=== PATIENT | female | born 1965 | race Two or more races ===

== ENCOUNTER 2021-07-14 11:48 | Inpatient (IN) | payer OTHER ==
[~2021-07-14] VITALS: Ht 160 cm; Wt 28.6 kg
[2021-07-14] MEDS ORDERED: cefTRIAXone SOD 1,000 MG VL ONE (11:58)
[2021-07-14] MEDS ORDERED: LIDOCAINE 2% (LOCAL ANESTH.) PF 5ml SDV ONE (11:58)
[2021-07-14] MEDS ORDERED: DexAMETHasone SOD PHOS 4 MG/1ML SDV INJ IM ONE (12:00)
[2021-07-14] MEDS ORDERED: cefTRIAXone W LIDOCAINE 1 GM IM IM ONE (12:15)
[2021-07-14 12:26] LABS: Basophils # (auto) 0 10 ^3/uL (0-0.2); Basophils % (auto) 0.1 % (0.0-2.0); Eosinophils # (auto) 0 10 ^3/uL (0-0.8); Hematocrit 37.6 % (36.0-46.0); Lymphocytes % (auto) 7.9 % (10.0-50.0); Mean Corpuscular Hemoglobin 30.8 pg (28.0-32.0); Mean Corpuscular Hgb Conc. 34.6 g/dL (32.0-36.0); Mean Corpuscular Volume 88.9 fL (80.0-100.0); Monocytes # (auto) 0.5 10 ^3/uL (0-1.3); Monocytes % (auto) 4.2 % (0.0-12.0); Neutrophils # (auto) 11.2 10 ^3/uL (1.6-8.6); Neutrophils % (auto) 87.8 % (37.0-80.0); Red Blood Cells 4.23 10^6/uL (4.0-5.20); Red Cell Distribution Width 12.8 % (11.8-14.3); White Blood Cell 12.8 10^3/uL (4.4-10.8)
[2021-07-14 12:36] LABS: Albumin 3.1 g/dL (3.4-5.0); Anion Gap 10 (5-15); Blood Urea Nitrogen 14 mg/dL (7-18); Calcium 8.8 mg/dL (8.5-10.1); Carbon Dioxide 20 mmol/L (21-32); Chloride 104 mmol/L (98-107); Glucose 115 mg/dL (74-106); Magnesium 2.2 mg/dL (1.6-2.6); Sodium 134 mmol/L (136-145)
[2021-07-14 12:46] LABS: Alanine Aminotransferase 49 U/L (13-56); Alkaline Phosphatase 110 U/L (45-117); Aspartate Aminotransferase 43 U/L (15-37); BUN/Creatinine Ratio 16.9; Bilirubin, Total 0.3 mg/dL (0.2-1.0); CRP High Sensitivity 2.94 mg/dL (< 0.3); GFR African American 91 mL/min; GFR Non-African American 75 mL/min
[2021-07-14] MEDS ORDERED: AZITHROMYCIN 500MG/ 250ML 250 ML IV ONE (15:45)
[2021-07-14] MEDS ORDERED: ACETAMINOPHEN 500 MG TAB PO PRN (17:15)
[2021-07-14] MEDS ORDERED: DOCUSATE CALCIUM 240 MG CAP PO PRN (17:15)
[2021-07-14] MEDS ORDERED: NITROGLYCERIN 0.4 MG SL TAB SL PRN (17:15)
[2021-07-14] MEDS ORDERED: MORPHINE SULFATE INJECTION 2 MG/ML SYRG IV PRN ×2 (17:15)
[2021-07-14] MEDS: BUDESONIDE (INHALATION) 180 MCG IH IN SCH (22:00)
[2021-07-14] MEDS: ENOXAPARIN SOD 40 MG/0.4 ML SYRINGE SC SCH (23:10)
[2021-07-15 03:47] VITALS: BP 111/46
[2021-07-15 04:48] LABS: Basophils # (auto) 0 10 ^3/uL (0-0.2); Basophils % (auto) 0.2 % (0.0-2.0); Eosinophils # (auto) 0 10 ^3/uL (0-0.8); Hematocrit 34.8 % (36.0-46.0); Hemoglobin 12.1 g/dL (12.2-16.2); Lymphocytes # (auto) 1.3 10 ^3/uL (0.4-5.4); Lymphocytes % (auto) 15.7 % (10.0-50.0); Mean Corpuscular Hemoglobin 31.1 pg (28.0-32.0); Mean Corpuscular Hgb Conc. 34.9 g/dL (32.0-36.0); Mean Corpuscular Volume 89.2 fL (80.0-100.0); Monocytes # (auto) 0.7 10 ^3/uL (0-1.3); Neutrophils # (auto) 6.2 10 ^3/uL (1.6-8.6); Neutrophils % (auto) 75.1 % (37.0-80.0); Red Cell Distribution Width 12.9 % (11.8-14.3); White Blood Cell 8.3 10^3/uL (4.4-10.8)
[2021-07-15 05:16] LABS: Albumin 2.6 g/dL (3.4-5.0); Calcium 8.1 mg/dL (8.5-10.1); Potassium 4.2 mmol/L (3.5-5.1)
[2021-07-15 05:18] LABS: BUN/Creatinine Ratio 25.4
[2021-07-15 05:21] LABS: Bilirubin, Total 0.2 mg/dL (0.2-1.0)
[2021-07-15] MEDS: BUDESONIDE (INHALATION) 180 MCG IH IN SCH ×2 (07:10→22:00)
[2021-07-15] MEDS: ALBUTEROL SULF HFA 90MCG INH 200DOSE IN PRN (07:10)
[2021-07-15 08:09] LABS: Urine Bacteria NONE SEEN /hpf (None Seen); Urine Blood Negative /uL (Negative); Urine Specific Gravity 1.023 (1.001-1.035); Urine WBC 2 /hpf (0 - 5)
[2021-07-15 09:00] VITALS: BP 129/75
[2021-07-15 09:05] VITALS: BP 129/75
[2021-07-15] MEDS: ASCORBIC ACID 1,000 MG TAB PO SCH (09:46)
[2021-07-15] MEDS: ZINC SULFATE 220mg CAP or TAB PO SCH (09:46)
[2021-07-15] MEDS: CHOLECALCIFEROL (VITD3) 2,000 UNIT CAP/TAB PO SCH (09:46)
[2021-07-15] MEDS: cefTRIAXone 1GM/50ML D5W 50 ML IV SCH (09:46)
[2021-07-15] MEDS: PANTOPRAZOLE 40 MG TAB PO SCH (09:46)
[2021-07-15] MEDS ORDERED: REMDESIVIR PER PHARMACY 0 ML IV SCH (10:15)
[2021-07-15] MEDS ORDERED: guaiFENesin-CODEINE Liq 5 ML UD GT PRN (10:30)
[2021-07-15] MEDS: AZITHROMYCIN 500MG/ 250ML 250 ML IV SCH (10:44)
[2021-07-15] MEDS: ENOXAPARIN SOD 40 MG/0.4 ML SYRINGE SC SCH ×2 (11:28→21:25)
[2021-07-15] MEDS: ONDANSETRON HCL 4 MG/2 ML VIAL IV PRN (12:34)
[2021-07-15 13:00] VITALS: BP 125/75
[2021-07-15] MEDS ORDERED: REMDESIVIR 200 MG in NS 210ml LOADING DOSE ADULT IV ONE (13:00)
[2021-07-15 17:00] VITALS: BP 110/65
[2021-07-15 22:00] VITALS: BP 110/60
[2021-07-16] MEDS: ALBUTEROL SULF HFA 90MCG INH 200DOSE IN PRN ×3 (01:09→19:50)
[2021-07-16 05:00] VITALS: BP 95/63
[2021-07-16] MEDS: BUDESONIDE (INHALATION) 180 MCG IH IN SCH ×2 (07:20→19:50)
[2021-07-16 07:40] LABS: Calcium 8.2 mg/dL (8.5-10.1); Potassium 4.3 mmol/L (3.5-5.1)
[2021-07-16 07:44] LABS: BUN/Creatinine Ratio 31.3
[2021-07-16 09:00] VITALS: BP 82/56
[2021-07-16] MEDS: CHOLECALCIFEROL (VITD3) 2,000 UNIT CAP/TAB PO SCH (10:12)
[2021-07-16] MEDS: PANTOPRAZOLE 40 MG TAB PO SCH (10:12)
[2021-07-16] MEDS: cefTRIAXone 1GM/50ML D5W 50 ML IV SCH (10:12)
[2021-07-16] MEDS: ASCORBIC ACID 1,000 MG TAB PO SCH (10:12)
[2021-07-16] MEDS: ZINC SULFATE 220mg CAP or TAB PO SCH (10:12)
[2021-07-16] MEDS: ENOXAPARIN SOD 40 MG/0.4 ML SYRINGE SC SCH ×2 (10:13→22:06)
[2021-07-16] MEDS: ONDANSETRON HCL 4 MG/2 ML VIAL IV PRN (11:19)
[2021-07-16] MEDS: AZITHROMYCIN 500MG/ 250ML 250 ML IV SCH (11:19)
[2021-07-16 11:26] LABS: Hematocrit 38.1 % (36.0-46.0); Mean Corpuscular Hemoglobin 30.8 pg (28.0-32.0); Mean Corpuscular Hgb Conc. 34.2 g/dL (32.0-36.0); Red Blood Cells 4.23 10^6/uL (4.0-5.20); Red Cell Distribution Width 13.1 % (11.8-14.3); White Blood Cell 11.4 10^3/uL (4.4-10.8)
[2021-07-16 11:28] LABS: Basophils % (manual) 0 (0.0-2.0); Blast Cells 0; Eosinophils % (manual) 0 (0-7); Metamyelocytes % 0; Myelocytes % 0; Promyelocytes % 0; Reactive Lymphocytes 0
[2021-07-16 12:16] LABS: Band Neutrophils % (manual) 1; Lymphocytes % (manual) 18 (10.0-50.0); Monocytes % (manual) 7 (0-12)
[2021-07-16 13:00] VITALS: BP 99/76
[2021-07-16] MEDS: REMDESIVIR 100mg 100 MG in SODIUM CHL 0.9% 230 ML IV SCH (15:08)
[2021-07-16 17:00] VITALS: BP 92/61
[2021-07-16 22:00] VITALS: BP 99/65
[2021-07-17 05:12] VITALS: BP 98/55
[2021-07-17] MEDS: ALBUTEROL SULF HFA 90MCG INH 200DOSE IN PRN ×2 (07:01→22:01)
[2021-07-17] MEDS: BUDESONIDE (INHALATION) 180 MCG IH IN SCH ×2 (07:01→22:00)
[2021-07-17 07:30] LABS: Basophils # (auto) 0 10 ^3/uL (0-0.2); Basophils % (auto) 0.2 % (0.0-2.0); Eosinophils # (auto) 0.1 10 ^3/uL (0-0.8); Eosinophils % (auto) 0.9 % (0.0-7.0); Hematocrit 36.5 % (36.0-46.0); Hemoglobin 12.5 g/dL (12.2-16.2); Lymphocytes # (auto) 1.5 10 ^3/uL (0.4-5.4); Lymphocytes % (auto) 19.8 % (10.0-50.0); Mean Corpuscular Hgb Conc. 34.3 g/dL (32.0-36.0); Mean Corpuscular Volume 90.4 fL (80.0-100.0); Monocytes # (auto) 0.8 10 ^3/uL (0-1.3); Monocytes % (auto) 9.9 % (0.0-12.0); Neutrophils # (auto) 5.3 10 ^3/uL (1.6-8.6); Neutrophils % (auto) 69.2 % (37.0-80.0); Nucleated Red Blood Cells % 0.1 %; Red Blood Cells 4.04 10^6/uL (4.0-5.20); Red Cell Distribution Width 13.2 % (11.8-14.3); White Blood Cell 7.7 10^3/uL (4.4-10.8)
[2021-07-17 07:34] LABS: Calcium 8.3 mg/dL (8.5-10.1); Potassium 4.3 mmol/L (3.5-5.1)
[2021-07-17 07:37] LABS: BUN/Creatinine Ratio 26.3
[2021-07-17] MEDS: ASCORBIC ACID 1,000 MG TAB PO SCH (08:41)
[2021-07-17] MEDS: ZINC SULFATE 220mg CAP or TAB PO SCH (08:41)
[2021-07-17] MEDS: CHOLECALCIFEROL (VITD3) 2,000 UNIT CAP/TAB PO SCH (08:41)
[2021-07-17] MEDS: PANTOPRAZOLE 40 MG TAB PO SCH (08:41)
[2021-07-17] MEDS: ENOXAPARIN SOD 40 MG/0.4 ML SYRINGE SC SCH ×2 (08:41→21:29)
[2021-07-17] MEDS: cefTRIAXone 1GM/50ML D5W 50 ML IV SCH (08:41)
[2021-07-17 09:00] VITALS: BP 103/67
[2021-07-17] MEDS: AZITHROMYCIN 500MG/ 250ML 250 ML IV SCH (10:00)
[2021-07-17 13:00] VITALS: BP 112/73
[2021-07-17] MEDS: REMDESIVIR 100mg 100 MG in SODIUM CHL 0.9% 230 ML IV SCH (15:26)
[2021-07-17 17:00] VITALS: BP 107/72
[2021-07-17 22:00] VITALS: BP 113/73
[2021-07-18 01:22] VITALS: BP 113/73
[2021-07-18 05:26] VITALS: BP 108/50
[2021-07-18 06:07] LABS: Hematocrit 35.7 % (36.0-46.0); Hemoglobin 12.3 g/dL (12.2-16.2); Mean Corpuscular Hemoglobin 31.1 pg (28.0-32.0); Mean Corpuscular Hgb Conc. 34.3 g/dL (32.0-36.0); Mean Corpuscular Volume 90.5 fL (80.0-100.0); Red Blood Cells 3.95 10^6/uL (4.0-5.20); Red Cell Distribution Width 12.9 % (11.8-14.3); White Blood Cell 7.8 10^3/uL (4.4-10.8)
[2021-07-18 06:31] LABS: Band Neutrophils % (manual) 0; Basophils % (manual) 0 (0.0-2.0); Blast Cells 0; Metamyelocytes % 0; Myelocytes % 0; Promyelocytes % 0; Reactive Lymphocytes 0
[2021-07-18 06:40] LABS: Calcium 8.4 mg/dL (8.5-10.1); Potassium 4.6 mmol/L (3.5-5.1)
[2021-07-18 06:42] LABS: BUN/Creatinine Ratio 20.7
[2021-07-18 08:24] LABS: Eosinophils % (manual) 4 (0-7); Lymphocytes % (manual) 21 (10.0-50.0); Monocytes % (manual) 6 (0-12)
[2021-07-18 09:00] VITALS: BP 94/52
[2021-07-18] MEDS: ZINC SULFATE 220mg CAP or TAB PO SCH (09:21)
[2021-07-18] MEDS: ASCORBIC ACID 1,000 MG TAB PO SCH (09:21)
[2021-07-18] MEDS: PANTOPRAZOLE 40 MG TAB PO SCH (09:21)
[2021-07-18] MEDS: cefTRIAXone 1GM/50ML D5W 50 ML IV SCH (09:21)
[2021-07-18] MEDS: CHOLECALCIFEROL (VITD3) 2,000 UNIT CAP/TAB PO SCH (09:21)
[2021-07-18] MEDS: BUDESONIDE (INHALATION) 180 MCG IH IN SCH ×2 (09:27→19:59)
[2021-07-18] MEDS: ALBUTEROL SULF HFA 90MCG INH 200DOSE IN PRN ×2 (09:27→19:58)
[2021-07-18] MEDS: ONDANSETRON HCL 4 MG/2 ML VIAL IV PRN (09:39)
[2021-07-18] MEDS: ENOXAPARIN SOD 40 MG/0.4 ML SYRINGE SC SCH ×2 (09:39→21:12)
[2021-07-18] MEDS: AZITHROMYCIN 500MG/ 250ML 250 ML IV SCH (11:03)
[2021-07-18 13:00] VITALS: BP 106/62
[2021-07-18] MEDS: REMDESIVIR 100mg 100 MG in SODIUM CHL 0.9% 230 ML IV SCH (15:03)
[2021-07-18 17:00] VITALS: BP 108/55
[2021-07-18 22:00] VITALS: BP 112/66
[2021-07-19 05:00] VITALS: BP 102/47
[2021-07-19 06:26] LABS: Hematocrit 34.9 % (36.0-46.0); Hemoglobin 12.2 g/dL (12.2-16.2); Mean Corpuscular Hemoglobin 31.1 pg (28.0-32.0); Mean Corpuscular Hgb Conc. 34.8 g/dL (32.0-36.0); Mean Corpuscular Volume 89.3 fL (80.0-100.0); Red Blood Cells 3.91 10^6/uL (4.0-5.20); White Blood Cell 6.3 10^3/uL (4.4-10.8)
[2021-07-19 06:32] LABS: Band Neutrophils % (manual) 0; Basophils % (manual) 0 (0.0-2.0); Blast Cells 0; Reactive Lymphocytes 0
[2021-07-19 06:39] LABS: Potassium 4.4 mmol/L (3.5-5.1)
[2021-07-19 06:56] LABS: BUN/Creatinine Ratio 21.7; Calcium 8.5 mg/dL (8.5-10.1)
[2021-07-19] MEDS: BUDESONIDE (INHALATION) 180 MCG IH IN SCH (08:22)
[2021-07-19] MEDS: ALBUTEROL SULF HFA 90MCG INH 200DOSE IN PRN (08:22)
[2021-07-19 08:39] LABS: Eosinophils % (manual) 7 (0-7); Lymphocytes % (manual) 25 (10.0-50.0); Metamyelocytes % 3; Monocytes % (manual) 15 (0-12); Myelocytes % 1; Promyelocytes % 1
[2021-07-19] MEDS: ZINC SULFATE 220mg CAP or TAB PO SCH (08:46)
[2021-07-19] MEDS: PANTOPRAZOLE 40 MG TAB PO SCH (08:46)
[2021-07-19] MEDS: ASCORBIC ACID 1,000 MG TAB PO SCH (08:47)
[2021-07-19] MEDS: CHOLECALCIFEROL (VITD3) 2,000 UNIT CAP/TAB PO SCH (08:47)
[2021-07-19] MEDS: ENOXAPARIN SOD 40 MG/0.4 ML SYRINGE SC SCH (08:47)
[2021-07-19 09:00] VITALS: BP 91/53
[2021-07-19] MEDS: cefTRIAXone 1GM/50ML D5W 50 ML IV SCH (09:11)
[2021-07-19] MEDS: AZITHROMYCIN 500MG/ 250ML 250 ML IV SCH (10:46)
[2021-07-19] MEDS ORDERED: ONDA-144 PO (12:10)
[2021-07-19] MEDS ORDERED: CHOL1CAP47 PO (12:10)
[2021-07-19] MEDS ORDERED: ALBUAER3 IN (12:10)
[2021-07-19] MEDS ORDERED: ASCO10003 PO (12:10)
[2021-07-19] MEDS ORDERED: DEXA4TAB90 PO (12:14)
[2021-07-19] MEDS ORDERED: ACETAMINOPHEN 500 MG TAB PO PRN (12:30)
[2021-07-19] MEDS: REMDESIVIR 100mg 100 MG in SODIUM CHL 0.9% 230 ML IV SCH (12:37)
== END 2021-07-19 15:40 | disposition home or self-care (01) | DRG 177 ==
LOC: ER 11:48 → TELE 17:12 → TELE-EAST 07-15 09:03
PROVIDERS: ADMIT Family Medicine; ATTEND Internal Medicine Pulmonary Disease
PROC: XW033E5 Introduction of Remdesivir Anti-infective into Peripheral Vein, Percutaneous Approach, New Technology Group 5 (ICD-10-PCS; principal; 2021-07-15)
DX: U07.1 COVID-19 (principal); J12.82 Pneumonia due to coronavirus disease 2019; J96.01 Acute respiratory failure with hypoxia; R03.0 Elevated blood-pressure reading, without diagnosis of hypertension
CPT/HCPCS: 36415; 71045; 71250; 80048; 80053; 81001; 82306; 82728; 83036; 83605; 83615; 83735; 83880; 84443; 84484; 85007; 85025; 85027; 85379; 86141; 87070; 87205; 87426; 93970; 94640; 96365; 96372; 99291; G0378; J0696; J1100; J2001; J2405

== ENCOUNTER 2021-08-22 18:09 | Emergency (ER) | payer OTHER ==
[~2021-08-22] VITALS: Ht 160 cm; Wt 66.7 kg
[~2021-08-22 18:09] MED LIST: ALBUAER3 IN; ASCO10003 PO; CHOL1CAP47 PO; DEXA4TAB90 PO; ONDA-144 PO
[2021-08-22 18:16] VITALS: BP 147/71
[2021-08-22 19:21] LABS: Basophils # (auto) 0 10 ^3/uL (0-0.2); Basophils % (auto) 0.5 % (0.0-2.0); Eosinophils # (auto) 0.2 10 ^3/uL (0-0.8); Eosinophils % (auto) 4.1 % (0.0-7.0); Hematocrit 35.3 % (36.0-46.0); Hemoglobin 11.6 g/dL (12.2-16.2); Lymphocytes # (auto) 2.3 10 ^3/uL (0.4-5.4); Lymphocytes % (auto) 44.1 % (10.0-50.0); Mean Corpuscular Hemoglobin 30.3 pg (28.0-32.0); Mean Corpuscular Hgb Conc. 32.8 g/dL (32.0-36.0); Mean Corpuscular Volume 92.3 fL (80.0-100.0); Monocytes # (auto) 0.5 10 ^3/uL (0-1.3); Monocytes % (auto) 10.5 % (0.0-12.0); Neutrophils # (auto) 2.1 10 ^3/uL (1.6-8.6); Neutrophils % (auto) 40.8 % (37.0-80.0); Red Blood Cells 3.82 10^6/uL (4.0-5.20); Red Cell Distribution Width 14.3 % (11.8-14.3); White Blood Cell 5.2 10^3/uL (4.4-10.8)
[2021-08-22 19:35] LABS: Albumin 3.6 g/dL (3.4-5.0); Anion Gap 5 (5-15); Blood Urea Nitrogen 18 mg/dL (7-18); Calcium 8.9 mg/dL (8.5-10.1); Carbon Dioxide 27 mmol/L (21-32); Chloride 107 mmol/L (98-107); Glucose 113 mg/dL (74-106); Potassium 3.7 mmol/L (3.5-5.1); Sodium 139 mmol/L (136-145)
[2021-08-22 19:42] LABS: Alanine Aminotransferase 38 U/L (13-56); Alkaline Phosphatase 60 U/L (45-117); Aspartate Aminotransferase 20 U/L (15-37); BUN/Creatinine Ratio 20.2; Bilirubin, Total 0.1 mg/dL (0.2-1.0); GFR African American 84 mL/min; GFR Non-African American 69 mL/min
== END 2021-08-22 21:21 | disposition home or self-care (01) ==
LOC: ER 18:09
DX: M79.604 Pain in right leg (principal)
CPT/HCPCS: 36415; 80053; 83880; 84484; 85025; 93971